=== PATIENT | female | born 1995 | race Asian ===

== ENCOUNTER 2017-12-01 16:33 | Emergency (ER) | payer OTHER ==
[~2017-12-01] VITALS: Ht 149.9 cm; Wt 56.4 kg
[2017-12-01] MEDS ORDERED: IBUP-2070 PO (16:41)
[2017-12-01] MEDS ORDERED: PREN1TAB80 PO (16:41)
[2017-12-01 18:18] LABS: APPEARANCE,URINE CLEAR (CLEAR); BILIRUBIN,URINE NEGATIVE (NEGATIVE); GLUCOSE, URINE (UA) NEGATIVE (NEGATIVE); KETONES,URINE NEGATIVE (NEGATIVE); LEUKOCYTE ESTERASE ,URINE MODERATE (NEGATIVE); NITRATE,URINE NEGATIVE (NEGATIVE); OCCULT BLOOD,URINE MODERATE (NEGATIVE); PROTEIN,URINE NEGATIVE (NEGATIVE); UROBILINOGEN,URINE 0.2 mg/dL (<=1.0)
[2017-12-01 19:07] LABS: BACTERIA,URINE Few /HPF (None Seen); SQUAMOUS EPITHELIAL CELL,UR Few /LPF (None Seen)
[2017-12-01 19:15] VITALS: BP 136/69
== END 2017-12-01 19:18 | disposition home or self-care (01) ==
LOC: EMS 16:35
DX: R10.2 Pelvic and perineal pain (principal)
CPT/HCPCS: 87086; 99284